=== PATIENT | female | born 1990 | race Caucasian/White ===

== ENCOUNTER 2022-03-25 08:14 | Outpatient (CLI) | payer OTHER, SELFPAY ==
--- NOTE | 2022-03-25 08:15 | CRLHL7_ITS ---
For Patients: As a result of the Cures Act, medical imaging exams and procedure reports are released immediately into your electronic medical record. You may view this report before your referring provider. If you have questions, please contact your health care provider. INDICATION: First trimester scan, establish dates. COMPARISON: None. TECHNIQUE: Real-time hampton-scale imaging of the pelvis was performed. FINDINGS: Sonographic imaging demonstrates a single living intrauterine gestation. The embryo demonstrates a regular cardiac rate measuring 176 beats per minute. The embryo`s crown-rump length measurement of 2.1 cm corresponds to a gestational age of 8 weeks 5 days with a sonographic due date of 10/30/2022. There is a normal-appearing yolk sac. There are no gross abnormalities noted within the embryo at this early state of development. The gestational sac has a normal appearance. There is a 1.6 x 0.5 x 0.5 cm perigestational hemorrhage. The amount of fluid within the sac appears appropriate for gestational age. The cervix is closed. The myometrium appears normal. The ovaries are of normal size. Corpus luteal cyst left ovary. There are no suspicious fluid collections noted in the cul-de-sac. Debris in the bladder. IMPRESSION: Single living intrauterine with sonographic gestational age 8 weeks 5 days and sonographic due date 10/30/2022. Small left-sided subchorionic hemorrhage measuring 1.6 x 0.5 x 0.5 cm. Layering debris in the bladder suggesting cystitis. Dictated by Aureliano Mccoy MD @ 03/25/2022 9:02:14 AM (Electronically Signed)
[2022-03-25 12:13] LABS: HIV 1/2/P24 Combo Screen* Negative (Negative)
[2022-03-25 12:17] LABS: Chlamydia DNA Amplified* NOT DETECTED (No Detected); GC DNA Amplified* NOT DETECTED (No Detected)
[2022-03-25 13:19] LABS: Hepatitis B Surface Antigen* Negative (Negative)
[2022-03-25 13:36] LABS: Hepatitis C Virus Antibody* Negative (Negative)
[2022-03-26 17:51] LABS: Varicella-Zoster Virus Ab, IgG 619.9 IV
[2022-03-26 17:56] LABS: Rubella Antibody IgG 33.8 IU/mL
[2022-03-26 21:11] LABS: Rapid Plasma Reagin (RPR) Non Reactive (Non Reactive)
== END 2022-03-25 08:15 | disposition home or self-care (01) ==
LOC: US 08:16
PROVIDERS: PCP Advanced Practice Midwife; Visit Provider Advanced Practice Midwife
DX: Z34.91 Encounter for supervision of normal pregnancy, unspecified, first trimester (principal); O20.9 Hemorrhage in early pregnancy, unspecified; Z3A.08 8 weeks gestation of pregnancy
CPT/HCPCS: 36415; 76801; 86592; 86703; 86762; 86787; 86803; 86850; 86900; 86901; 87086; 87340; 87491

== ENCOUNTER 2022-06-11 10:10 | Outpatient (CLI) | payer OTHER, SELFPAY ==
--- NOTE | 2022-06-11 10:15 | CRLHL7_ITS ---
For Patients: As a result of the Century Cures Act, medical imaging exams and procedure reports are released immediately into your electronic medical record. You may view this report before your referring provider. If you have questions, please contact your health care provider. INDICATION: Evaluate anatomy. COMPARISON: 03/25/2022 TECHNIQUE: Real time hampton scale imaging of the fetus was performed as well as color Doppler analysis of the umbilical vessels. FINDINGS: Sonographic imaging demonstrates a single living intrauterine gestation. Fetus demonstrates a regular cardiac rate of 152 beats per minute. Fetus has a vertex position. The placenta lies anteriorly without evidence of placenta previa. The edge of the placenta is located 4.7 cm from the internal cervical os. Amniotic fluid volume appears normal. Single deepest vertical pocket: 5.1 cm. The cervix is closed and measures 3.7 cm in length. The composite ultrasound gestational age is calculated at 19 weeks 4 days with an estimated sonographic due date of 11/01/2022. The estimated weight is 314 grams which lies at the 42nd %. The following biometric measurements were obtained: Biparietal diameter: 4.3 cm/19 weeks 0 days 18th% Head circumference: 16.4 cm/19 weeks 1 day 13th% Abdominal circumference: 14.9 cm/20 weeks 1 day 55th% Femur length: 3.1 cm/19 weeks 4 days 34th% The HC/AC ratio measures: 1.10 range (1.08-1.26) On anatomic survey, there is a normal appearance of the cerebral ventricles, cavum septi pellucidi, cisterna magna and cerebellum. The incomplete visualization of the profile and nose/lips due to position. The cervical, thoracic and lumbar spine are well visualized and appear normal. There is a normal four-chamber heart view and the left and right ventricular outflow tracts appear normal. The diaphragm and stomach appear normal. The kidneys and bladder also appear normal. There is a normal three-vessel cord and cord insertion site. The four extremities appear normal. IMPRESSION: Concordance of clinical and sonographic dating. Incomplete visualization of the profile, nose and lips due to position. Remainder of the anatomic survey is normal. Short-term follow-up recommended. Estimated weight 42nd percentile. Abdominal circumference 55th percentile. Dictated by Aureliano Mccoy MD @ 06/11/2022 11:27:30 AM (Electronically Signed)
== END 2022-06-11 10:11 | disposition home or self-care (01) ==
LOC: US 10:11
PROVIDERS: PCP Advanced Practice Midwife; Visit Provider Advanced Practice Midwife
DX: Z34.92 Encounter for supervision of normal pregnancy, unspecified, second trimester (principal); Z3A.19 19 weeks gestation of pregnancy
CPT/HCPCS: 76805

== ENCOUNTER 2022-07-09 08:12 | Outpatient (CLI) | payer OTHER, SELFPAY ==
--- NOTE | 2022-07-09 08:15 | CRLHL7_ITS ---
For Patients: As a result of the Century Cures Act, medical imaging exams and procedure reports are released immediately into your electronic medical record. You may view this report before your referring provider. If you have questions, please contact your health care provider. INDICATION: F/U ON MISSED ANATOMY FROM ANATOMY SCAN DUE TO POSITION OF FETUS COMPARISON: 06/11/2022 TECHNIQUE: Real time hampton scale imaging of the fetus was performed. FINDINGS: Sonographic imaging demonstrates a single living intrauterine gestation. Fetus demonstrates a regular cardiac rate of 4.9 beats per minute. Fetus has a vertex position. The placenta lies anterior. Amniotic fluid volume appears normal. Single deepest vertical pocket: 4.9 cm. The cord inserts into the placenta 3.8 cm from the placental edge. Normal nose, lips and profile given limitations of posterior face located posteriorly. IMPRESSION: Normal profile, nose and lips. Dictated by Aureliano Mccoy MD @ 07/09/2022 9:34:35 AM (Electronically Signed)
== END 2022-07-09 08:13 | disposition home or self-care (01) ==
LOC: US 08:12
PROVIDERS: PCP Advanced Practice Midwife; Visit Provider Advanced Practice Midwife
DX: O35.8XX0 Maternal care for other (suspected) fetal abnormality and damage, not applicable or unspecified (principal)
CPT/HCPCS: 76816

== ENCOUNTER 2022-08-04 16:30 | Outpatient (RCR) | payer OTHER, SELFPAY | END 2022-10-27 10:01 | disposition home or self-care (01) | PROVIDERS: PCP Advanced Practice Midwife; Visit Provider Advanced Practice Midwife | DX: N81.89 Other female genital prolapse (principal); Z51.89 Encounter for other specified aftercare | CPT/HCPCS: 97110; 97140; 97161; 97535 ==

== ENCOUNTER 2022-08-06 08:14 | Outpatient (CLI) | payer OTHER, SELFPAY ==
--- NOTE | 2022-08-06 08:15 | CRLHL7_ITS ---
For Patients: As a result of the Century Cures Act, medical imaging exams and procedure reports are released immediately into your electronic medical record. You may view this report before your referring provider. If you have questions, please contact your health care provider. INDICATION: MARGINAL CORD INSERT COMPARISON: 07/09/2022 TECHNIQUE: Real time hampton scale imaging of the fetus was performed. FINDINGS: Sonographic imaging demonstrates a single living intrauterine gestation. Fetus demonstrates a regular cardiac rate of 150 beats per minute. Fetus has a breech position. The placenta lies anteriorly. The placental cord insertion is located 2.1 cm from the edge of the placenta in the transverse plane. Amniotic fluid volume appears normal and there is a single deepest vertical pocket: 5.5 cm. The estimated weight is 1157gm which lies at the 42nd %. On the prior OB ultrasound exam dated 06/11/2022 the estimated weight was at the 42nd%. BPD 36th percentile. HC 39th percentile. AC 45th percentile. FL 38th percentile. The HC/AC ratio measures 1.11 range (1.02-1.21). IMPRESSION: Sonographic gestational age 28 weeks 1 day and sonographic due date 10/28/2022. Good correlation with dates and normal interval growth. Estimated weight 42nd percentile. Abdominal circumference 45th percentile. Placental cord insertion is 2.1 cm from the placental edge in the transverse plane. Dictated by Aureliano Mccoy MD @ 08/06/2022 10:59:09 AM (Electronically Signed)
== END 2022-08-06 08:15 | disposition home or self-care (01) ==
LOC: US 08:14
PROVIDERS: PCP Advanced Practice Midwife; Visit Provider Advanced Practice Midwife
DX: Z34.82 Encounter for supervision of other normal pregnancy, second trimester (principal); Z3A.27 27 weeks gestation of pregnancy
CPT/HCPCS: 76816

== ENCOUNTER 2022-08-12 09:18 | Outpatient (CLI) | payer OTHER, SELFPAY ==
[2022-08-15 01:39] LABS: Rapid Plasma Reagin (RPR) Non Reactive (Non Reactive)
== END 2022-08-12 09:19 | disposition home or self-care (01) ==
LOC: NFLDREF 13:37
PROVIDERS: PCP Advanced Practice Midwife; Visit Provider Advanced Practice Midwife
DX: Z34.80 Encounter for supervision of other normal pregnancy, unspecified trimester (principal)
CPT/HCPCS: 86592

== ENCOUNTER 2022-08-14 07:57 | Outpatient (CLI) | payer OTHER, SELFPAY ==
[2022-08-14 08:21] VITALS: PULSE 80; O2SAT 100
[2022-08-14 08:25] VITALS: BP 114/56; PULSE 77
[2022-08-14 08:26] VITALS: TEMP 36.7
[2022-08-14 09:04] LABS: Fetal Fibronectin* Negative (Negative)
--- NOTE | 2022-08-14 09:28 | PC.OBNST ---
NST Note NST Note Start: 08/14/22 08:21 Freq: ONCE Status: Active Protocol: Document 08/14/22 09:25 MARISSA (Rec: 08/14/22 09:27 MAIRSSA [id number]) NST Note 2 Para (# of births) 1 EDC 10/30/22 Gestational Age In Weeks & Days 29 Weeks & 0 Days Patient Presented with Complaint(s) of Contractions/cramping Other Complaints dull low back pain, feels in legs. Appropriate for Gestational Age Yes LOWELL Santo Date 08/14/22 Appropriate for Gestational Age Yes LOWELL yAon Date 08/14/22 OB NST charge Yes Complete NST Note via Write Note Yes The provider's electronic signature indicates the NST is reactive/appropriate for gestational age. *Note to provider: If an addendum is required, open the patient's chart and click on the note under the Nurse/Allied Health tab.
== END 2022-08-14 09:44 | disposition home or self-care (01) ==
LOC: OB OUT 07:57 → OB 08:01
PROVIDERS: PCP Advanced Practice Midwife; Visit Provider Advanced Practice Midwife
DX: O47.03 False labor before 37 completed weeks of gestation, third trimester (principal); Z3A.29 29 weeks gestation of pregnancy
CPT/HCPCS: 59025; 84112; 99213

== ENCOUNTER 2022-09-10 12:11 | Outpatient (CLI) | payer OTHER, SELFPAY ==
--- NOTE | 2022-09-10 12:15 | CRLHL7_ITS ---
For Patients: As a result of the Century Cures Act, medical imaging exams and procedure reports are released immediately into your electronic medical record. You may view this report before your referring provider. If you have questions, please contact your health care provider. INDICATION: Marginal cord insertion COMPARISON: 08/06/2022 TECHNIQUE: Real time hampton scale imaging of the fetus was performed. FINDINGS: Sonographic imaging demonstrates a single living intrauterine gestation. Fetus demonstrates a regular cardiac rate of 149 beats per minute. Fetus has a vertex position. The placenta lies anteriorly. Amniotic fluid volume appears normal and there is a single deepest vertical pocket: 5.2 cm. The estimated weight is 2001gm which lies at the 31st %. On the prior OB ultrasound exam dated 08/06/2022 the estimated weight was at the 42nd%. The HC/AC ratio measures 1.06 range (0.96-1.12). BPD 44th percentile. HC 28th percentile. AC 39th percentile. FL 25th percentile. The placental cord insertion is 4.2-4.6 cm from the edge of the placenta. IMPRESSION: Placental cord insertion 4.2-4.6 cm from the placental edge. Sonographic gestational age 32 weeks 5 days and sonographic due date 10/31/2022. Good correlation with dates. Normal interval growth. Estimated weight 31st percentile. Abdominal circumference 39th percentile. Dictated by Aureliano Mccoy MD @ 09/10/2022 1:26:01 PM (Electronically Signed)
== END 2022-09-10 12:12 | disposition home or self-care (01) ==
LOC: US 12:12
PROVIDERS: PCP Advanced Practice Midwife; Visit Provider Physician Assistant
DX: O43.199 Other malformation of placenta, unspecified trimester (principal); Z3A.32 32 weeks gestation of pregnancy
CPT/HCPCS: 76816

== ENCOUNTER 2022-10-01 09:19 | Outpatient (CLI) | payer OTHER, SELFPAY ==
--- NOTE | 2022-10-01 09:15 | CRLHL7_ITS ---
For Patients: As a result of the Century Cures Act, medical imaging exams and procedure reports are released immediately into your electronic medical record. You may view this report before your referring provider. If you have questions, please contact your health care provider. INDICATION: Third trimester scan, evaluate growth. Marginal cord insertion. COMPARISON: 09/10/2022 TECHNIQUE: Real time hampton scale imaging of the fetus was performed. FINDINGS: Sonographic imaging demonstrates a single living intrauterine gestation. Fetus demonstrates a regular cardiac rate of 129 beats per minute. Fetus has a vertex position. The placenta lies anteriorly. Amniotic fluid volume appears normal and there is a single deepest vertical pocket: 7.7 cm. The estimated weight is 2883gm which lies at the 61st %. On the prior OB ultrasound exam dated 09/10/2022 the estimated weight was at the 31st%. BPD 26th percentile. HC 33rd percentile. AC 81st percentile. FL 45th percentile. The HC/AC ratio measures 0.98 range (0.93-1.08). IMPRESSION: The placental cord insertion is located 4.2 cm from the placental edge, considered normal. Sonographic gestational age 36 weeks 0 days and sonographic due date 10/29/2022. Good correlation with dates. Normal interval growth. Estimated weight 61st percentile. Abdominal circumference 81st percentile. Dictated by Aureliano Mccoy MD @ 10/01/2022 10:31:17 AM (Electronically Signed)
== END 2022-10-01 09:20 | disposition home or self-care (01) ==
LOC: US 09:19
PROVIDERS: PCP Advanced Practice Midwife; Visit Provider Obstetrics & Gynecology
DX: O43.193 Other malformation of placenta, third trimester (principal); O34.219 Maternal care for unspecified type scar from previous cesarean delivery
CPT/HCPCS: 76816

== ENCOUNTER 2022-10-08 13:25 | Outpatient (CLI) | payer OTHER, SELFPAY | END 2022-10-08 13:26 | disposition home or self-care (01) | LOC: NFLDREF 10-11 12:58 | PROVIDERS: PCP Advanced Practice Midwife; Visit Provider Obstetrics & Gynecology | DX: Z34.93 Encounter for supervision of normal pregnancy, unspecified, third trimester (principal); Z3A.36 36 weeks gestation of pregnancy | CPT/HCPCS: 87081; 87653 ==

== ENCOUNTER 2022-11-04 01:53 | Inpatient (IN) | payer OTHER, SELFPAY ==
[2022-11-04] VITALS (60 sets, daily range): BP systolic 89–171; BP diastolic 51–120; PULSE 74–209; RESP 16–18; TEMP 36.4–36.8; O2SAT 77–100; BMI 25.4
[2022-11-04] MEDS: LACTATED RINGERS 1000 ML 1,000 ML 825 ML IV (02:18)
[2022-11-04 02:21] LABS: Basophils Absolute Auto 0.02 K/uL (0.00-0.30); Basophils Percent Auto 0.2 % (0.0-3.0); Eosinophils Absolute Auto 0.05 K/uL (0.00-0.50); Eosinophils Percent Auto 0.5 % (0.0-7.0); Hematocrit 35.8 % (33.0-51.0); Hemoglobin* 11.9 gm/dL (12.0-16.0); Immature Granulocytes Abs Auto 0.04 K/uL (0.00-0.30); Immature Granulocytes Pct Auto 0.4 %; Lymphocytes Percent Auto 31.3 % (20-44); Mean Corpuscular HGB Conc 33 gm/dL (32-36); Mean Corpuscular Hemoglobin 29 pg (26-34); Mean Corpuscular Volume 88 fL (80-100); Monocytes Percent Auto 9.1 % (0.0-11.0); Neutrophils Percent Auto 58.5 % (42.0-72.0); Platelet Count* 248 K/uL (140-440); RDW Coefficient of Variation % 13.7 % (11.5-15.5); Red Blood Count 4.05 m/uL (4.00-5.20); White Blood Count* 9.58 K/uL (4.50-11.00)
[2022-11-04 02:23] LABS: Slide Review Reflex No
[2022-11-04] MEDS: PHENYLEPHRINE 100 MCG/ML SYRINGE IVP ×4 (02:25→03:08)
[2022-11-04] MEDS: LIDOCAINE 2% (PF) 5 ML VIAL EPIDURAL (02:45)
[2022-11-04] MEDS: ROPIVACAINE 0.2% 100 ml 100 ML 12 MG EPIDURAL (02:50)
--- NOTE | 2022-11-04 02:52 | P.LDBA_ITS ---
Subjective History of Present Illness Time Seen by Provider: 02:20 Date Seen: 11/04/22 Narrative: Patient is being admitted to Labor and Delivery for spontaneous onset of labor. She is a 32 year old at 40 5/7 weeks gestation. Her full history and physical was dictated by Dr. Dykes on 10/08/2022. Please see this for details. She had been seen in the clinic on 11/03/2022 for a routine OB visit. At that time, she stated that she was having mild nonpainful contraction s at about 30-minute intervals. Her cervix was 2/90/-2 on exam. She and her elected to stay in [place] at a motel overnight. Her contractions increased in frequency to about every 5 minutes by evening, but were still mild. She went to sleep and was awakened at midnight with strong contractions at less than 5- minute intervals. Blood Type: A positive 1. Previous section, low transverse incision, 2-layer closure documented * For NRFHT remote from delivery and OP presentation * TOLAC calculator: 77.1% - Pt considering but unsure if she wants RC/S or TOLAC, at this time would like to try but if undelivered by 40 weeks prefers to scheduled a at that time. * TOLAC consent form given to patient on 09/10/2022. Signed on 10/08/22 2. Hx of Gestational hypertension, reason for IOL last 3. Hx of depression 4. FAS: Vertex, SDP 5.1, anterior placenta with Marginal cord insertion, 42%ile. Profile and nose/lips not visualized, follow up u/s in 2-3 weeks. F/U u/s: 07/09/22: FINDINGS: The cord inserts into the placenta 3.8 cm from the placental edge. IMPRESSION:Normal profile, nose and lips. * Growth u/s q4 weeks starting at 28-32 weeks for marginal cord insertion recommended. - 06/11/22 request sent to [facility] for appointments. * 08/06/22: 42%ile: IMPRESSION: Sonographic gestational age 28 weeks 1 day and sonographic due date 10/28/2022. Good correlation with dates and normal interval growth. Estimated weight 42nd percentile. Abdominal circumference 45th percentile.Placental cord insertion is 2.1 cm from the placental edge in the transverse plane. * 09/10/2022: EFW 4 lb 7 oz (31%), BPD 44%, HC 28%, AC 39%, FL 20 5%, SDP 5.2 cm, vertex, placental cord insertion 4.6 cm from edge. * 10/01/21: EFW 61%, AC 81%, placental cord insertion 4.2 cm from the placental edge, considered normal. 5. Anemia, hgb 10.5 * iron supplement * Recheck at 36 weeks:11.1 normal Tdap 10/01/22 Flu 10/01/22 OB - Problem Based A/P Additional Plan (1) Spontaneous onset of labor: Status: Acute (2) Desires (vaginal after ) trial: Status: Acute (3) History of delivery: Status: Acute Plan Admit to Center. Anesthesia notified of patient desire for epidural. O.R. team in house. Delivery/Labor/Induction Plan Plan: expectant management OB Exam Physical Exam Vital signs: Pulse BP Pulse Ox 80 89/53 L 100 11/04/22 02:51 11/04/22 02:51 11/04/22 02:48 Detailed Labor and Delivery Exam Patient Gravid: Yes Dilation (cm): 6 Effacement (%): 90 Cervix position: mid Consistency: soft Contraction Frequency: 2-3 minutes Contraction duration (sec): 60 Tachysystole: No Contraction intensity: Strong/Firm Fetus (Single) Station: 0 Amniotic Membrane Status: intact (BBOW)
[2022-11-04] MEDS: fentaNYL 100 MCG/2 ML inj EPIDURAL (03:00)
[2022-11-04] MEDS: LACTATED RINGERS 1000 ML 1,000 ML 1200 ML IV (03:15)
--- NOTE | 2022-11-04 03:25 | PM.ANBPRC ---
[facility] Medical History (Updated 09/10/22 @ 17:14 by Anjali Scruggs MD) Gestational hypertension depression Surgical History (Updated 06/11/22 @ 11:44 by Nusrat Mckinney CNM) Status post primary low transverse section [place] teeth extracted Family History (Updated 03/25/22 @ 16:00 by Miranda Block CNM) Brother Crohn disease Father Healthy adult Mother Healthy adult Social History (Updated 03/25/22 @ 16:01 by Miranda Block CNM) Are you following a diet prescribed by a doctor: No Are you following a special diet: No Highest level of school completed/degree received: Bachelor's degree Physical activity type: other Physical activity type details: cross fit How many days of moderate to strenuous exercise, like a brisk walk, did you do in the last 7 days: 3 Smoking Status: Never smoker Non-prescribed substance use: denies use Caffeine: No Little interest or pleasure in doing things: not at all Feeling down, depressed, or hopeless: not at all Meds Home Medications and Allergies Home Medications Medication Instructions Recorded Confirmed Type sertraline 50 mg tablet 50 mg PO DAILY 03/25/22 11/03/22 History prenat.vits,rashawn,[id number] 1 tab PO QDAY 05/03/22 11/03/22 History ferrous sulfate 325 mg (65 mg 325 mg PO QDAY 10/01/22 11/03/22 History iron) tablet Allergies Allergy/AdvReac Type Severity Reaction Status Date / Time No Known Allergies Allergy Unverified 11/03/22 12:42 Results Labs Labs: Laboratory Results - last 24 hr 11/04/22 02:10 WBC 9.58 RBC 4.05 Hgb 11.9 L Hct 35.8 MCV 88 MCH 29 MCHC 33 RDW Coeff of Delaney 13.7 Plt Count 248 Neut % (Auto) 58.5 Lymph % (Auto) 31.3 [place] % (Auto) 9.1 Eos % (Auto) 0.5 Baso % (Auto) 0.2 Neut # (Auto) 5.60 Lymph # (Auto) 3.00 H [place] # (Auto) 0.90 Eos # (Auto) 0.05 Baso # (Auto) 0.02 Vital Signs Vital Signs: Last Vital Signs Pulse 100 11/04/22 03:20 BP 132/66 11/04/22 03:20 Pulse Ox 96 11/04/22 03:22 Anesthesia Procedures Epidural Insertion Patient Location: OB Start Time: :20 Stop Time: 03:20 Start Date: 11/04/22 Stop Date: 11/04/22 Reason for Block: procedure for pain Patient Position: sitting Performed By: Leslie Workman Preanesthetic Checklist: IV checked, risks and benefits discussed, monitors and equipment checked, pre-op evaluation, timeout performed and anesthesia consent Prep: chlorhexidine gluconate Monitoring: blood pressure monitoring, continuous pulse oximetry and heart rate Approach: midline Vertebral Space: lumbar (1-5) Epidural Technique: PRESTON saline Needle Type: Tuohy needle Injection Technique: continuous catheter (continuous catheter) Needle gauge: 17 Needle Length (cm): 10 cm Needle Insertion Depth (cm): 7 Catheter Gauge: 19 Catheter Type: multi-orifice Catheter at skin depth (cm): 15 Test Dose Result: negative and lidocaine 1.5% with epinephrine 1 to 200,000
[2022-11-04] MEDS: ePHEDrine sulfate 5 MG/ML inj 10 MG IVP ×3 (03:28→03:42)
[2022-11-04] MEDS: OXYTOCIN 30 unit/500 ML in NS 30 UNIT/500 ML BAG 300 UNIT IVPB (04:37)
[2022-11-04] MEDS: LIDOCAINE 1 % PF 30 ML INJECTION (05:00)
--- NOTE | 2022-11-04 05:29 | PM.OBPRCVD ---
Procedure Delivery date: 11/04/22 Procedure Done: Global Events: Previous Delivery monitor: external FHT and external uterine Route of delivery: Laceration description: Perineal - 2nd Degree (complex with bilateral labial tears) Delivery repair: Vicryl (3-0) and Chromic (3-0) Estimated blood loss (mL): 550 Anesthesia type: Epidural Disposition: floor Complications: None. Narrative: The patient is a 32 year-old G2 now P2002 admitted on 11/04/2022 at 40 Weeks, 5 Days gestation for spontaneous onset of labor.? Cervical exam on admission was 6 cm/90 % effaced/0 station with membranes intact in vertex presentation.? Contractions were every 2-3 minutes.? heart rate demonstrated baseline 120 bpm with moderate variability, + accelerations, - decelerations; a category 1 tracing.? Labor onset:? 0000 on 11/04/2022 SROM occurred at 0256 with light meconium-stained fluid. ? Labor Analgesia:? Epidural ? Pitocin:? No ? Complete:? 0300 ? Pushing:? 0300 ? heart tones during second stage were 120 to 140s baseline with variable and late decelerations to 70s to 90s, mostly associated with episodic maternal hypotension following epidural, relieved with pressor administration and maternal repositioning. ? At 0434 a viable male delivered in vertex OA presentation over complex second-degree perineal and vulvar laceration via spontaneous vaginal delivery after section ().? Infant was placed on maternal abdomen.? Cord was clamped and cut after a 30-60 second delay.? Nose and mouth were bulb suctioned.? Infant weight pending.? 8 at 1 minute and 9 at 5 minutes.? Shoulder dystocia: No.? Nuchal cord: No. ? Placenta delivered spontaneously and complete at 0440 with a 3 vessel cord. ? Mother and infant were stable after delivery. ? Lacerations:? Complex second-degree perineal and vulvar laceration, stellate with skin extension to level of anus, repaired with 3-0 vicryl and 3-0 chromic. ? Blood loss: 550 mL. Blood loss measurement type: QBL ? Sponge and needles counts are correct. Infant Infant Gender: Male presentation: vertex Placental Delivery Description: Spontaneous Cord Description: 3 Vessels
[2022-11-04] MEDS: IBUPROFEN 600 MG TABLET PO ×2 (06:52→13:40)
[2022-11-04 07:54] LABS: SARS PCR* Negative SARS-CoV-2 (Negative)
[2022-11-04] MEDS: DOCUSATE SODIUM 100 MG CAPSULE PO (08:14)
[2022-11-04] MEDS: LACTATED RINGERS 1000 ML 1,000 ML 400 ML IV (08:53)
[2022-11-04] MEDS: ACETAMINOPHEN 500 MG TABLET 1000 MG PO ×2 (10:56→19:16)
[2022-11-05 01:15] VITALS: BP 108/63; PULSE 72; RESP 16; TEMP 36.6; O2SAT 97
[2022-11-05] MEDS: IBUPROFEN 600 MG TABLET PO ×2 (01:22→07:35)
[2022-11-05] MEDS: ACETAMINOPHEN 500 MG TABLET 1000 MG PO ×2 (03:51→09:19)
[2022-11-05 05:00] VITALS: BP 101/59; PULSE 80; RESP 16; TEMP 36.5; O2SAT 98
[2022-11-05 06:55] LABS: Hemoglobin* 8.4 gm/dL (12.0-16.0)
--- NOTE | 2022-11-05 08:30 | PM.OBDSVD1 ---
DS: Providers Provider Date Seen: 11/05/22 Date of admission: 11/04/22 01:53 Primary care physician: Nusrat Mckinney CNM Admitting Clinician: Anjali Scruggs MD Attending Physician on discharge: Codi Odell CNM w/ CHELSEA Ruth DS: Diagnosis Discharge Diagnosis (1) care and examination immediately after delivery: Status: Acute (2) (vaginal after ): Status: Acute (3) Lactating mother: Status: Acute (4) Anemia due to acute blood loss: Status: Acute Exam Narrative: Exam Narrative: GENERAL APPEARANCE:? normal affect, alert, no distress? MOOD:? appropriate? CHEST:? clear to auscultation? HEART:? regular rate and rhythm? ABDOMEN:? soft, non-tender the uterine fundus is 1 below Umbilicus, Midline and is appropriate for the stage of recovery.? PERINEUM:? mild edema of the perineum, there is a Perineal Laceration,? 2nd degree, that is healing well.? EXTREMITIES:? normal and no edema? Const: Vital Signs, click to edit/add: Vital Signs - 24 hr 11/04/22 12:08 11/04/22 16:25 11/04/22 19:26 Temperature 98.3 F 98.3 F 97.8 F Pulse Rate [Blood Pressure Cuff] 77 96 98 Respiratory Rate 16 16 16 Blood Pressure [Le ft Arm] 129/79 121/84 Blood Pressure [Ri ght Arm] 112/66 Pulse Oximetry 97 96 97 Oxygen Delivery Me thod Room Air Room Air Room Air 11/05/22 01:15 11/05/22 05:00 Temperature 98 F 97.7 F Pulse Rate [Blood Pressure Cuff] 72 80 Respiratory Rate 16 16 Blood Pressure [Le ft Arm] 108/63 101/59 L Blood Pressure [Ri ght Arm] Pulse Oximetry 97 98 Oxygen Delivery Me thod Room Air Room Air Documenting provider has reviewed patient's vital signs: yes OB - DS: Summary Hospital Course Hospital Course: The patient is a 32 year old G 2 P 2 at 40 5/7 weeks gestation that was admitted to the Center on 11/04/22 for spontaneous onset of labor. She had an uncomplicated vaginal after delivery. She delivered a viable male . the patient has done well. The pain is well controlled with current medications.? She has no new complaints.? Urinary output is adequate and she is voiding without difficulty.? Has a good appetite, is tolerating a general diet, is passing flatus, and has not yet had a bowel movement.? Has small amount of rubra lochia.? She is ambulating well. She is and reports it is going well. Hgb today is 8.4, patient denies symptoms. Peripartum Data delivery method: Laceration description: Perineal - 2nd Degree complications: none [place] Infant Gender: Male Infant Discharge Plan: Home Status at Discharge Functional status at discharge: independent ambulation Overall status at discharge: patient is progressing back to baseline Time Spent with Patient Time attestation: Total time spent providing and/or coordinating discharge services: Time spent: Less than 30 minutes Discharge Plan Discharge Disposition: Home, Self-Care Date of Admission: 11/04/22 01:53 Attending Provider on Discharge: Codi Odell Primary Care Provider: Nusrat Mckinney Condition: Stable Anticipated Discharge Date/Time: 11/05/22 12:00 Discharge Medications: New acetaminophen 500 mg Tablet 1,000 mg PO Q6H PRNQty: 0 0RF docusate sodium 100 mg Capsule 100 mg PO DAILY Qty: 90 0RF ibuprofen 600 mg Tablet 600 mg PO Q6H PRNQty: 60 0RF Continued sertraline 50 mg tablet 50 mg PO DAILY prenat.vits,rashawn,[id number] Tablet 1 tab PO QDAY ferrous sulfate 325 mg (65 mg iron) tablet 325 mg PO QDAY Discharge Orders: Discharge Order (Routine); Ordered 11/05/22 Ordered By: Codi Odell Consulting provider completed their portion of the discharge: No Patient Education: OB Over the Counter Medication Information, OB Vaginal/Breast Feeding Additional Instructions: Discharge instructions were reviewed with the patient including signs and symptoms of infection and home going medications Nothing vaginally for 6 weeks: no tampons or intercourse Off Work or School for 6 weeks 2-week visit: discuss infant feeding concerns, review control options and screen for anxiety/depression. 6-week visit for an annual exam. consultation services are available to all mothers and babies for the first year after delivery.? To make an appointment, please call [phone]. Activity Level: Activity as Tolerated Discharge Diet: Regular Follow Up Appointments: [facility] [Provider Group] (2 and 6 week visit) Forms: [employer] Info Instructions
[2022-11-05 09:00] VITALS: BP 127/83; PULSE 93; RESP 16; TEMP 36.5; O2SAT 98
[2022-11-05] MEDS: DOCUSATE SODIUM 100 MG CAPSULE PO (09:13)
== END 2022-11-05 13:00 | disposition home or self-care (01) | DRG 806 ==
LOC: OB OUT 01:54 → OB 01:55
PROVIDERS: Admitting Provider Obstetrics & Gynecology; PCP Advanced Practice Midwife; Visit Provider Obstetrics & Gynecology
DX: O34.211 Maternal care for low transverse scar from previous cesarean delivery (principal); D62 Acute posthemorrhagic anemia; Z37.0 Single live birth; O76 Abnormality in fetal heart rate and rhythm complicating labor and delivery; O70.1 Second degree perineal laceration during delivery; O99.02 Anemia complicating childbirth; O77.0 Labor and delivery complicated by meconium in amniotic fluid; Z3A.40 40 weeks gestation of pregnancy
CPT/HCPCS: 01967; 36415; 85018; 85025; 86850; 86900; 86901; 87635; 99213; A9270; J2001; J2370; J2795; J3010; J7120

== ENCOUNTER 2023-08-15 13:47 | Outpatient (CLI) | payer OTHER, SELFPAY ==
[2023-08-17 15:16] LABS: HSV 1 Subtype by PCR Not Detected; HSV 2 Subtype by PCR Not Detected; Herpes Simplex Subtype Source Not Provided
== END 2023-08-15 13:48 | disposition home or self-care (01) ==
LOC: NFLDREF 13:47
PROVIDERS: Visit Provider Obstetrics & Gynecology
DX: N90.89 Other specified noninflammatory disorders of vulva and perineum (principal)
CPT/HCPCS: 87529

== ENCOUNTER 2024-07-04 13:56 | Outpatient (CLI) | payer OTHER, SELFPAY | END 2024-07-04 13:57 | disposition home or self-care (01) | PROVIDERS: Visit Provider Registered Nurse | DX: Z34.91 Encounter for supervision of normal pregnancy, unspecified, first trimester (principal); Z87.59 Personal history of other complications of pregnancy, childbirth and the puerperium; Z3A.08 8 weeks gestation of pregnancy | CPT/HCPCS: 76817; 82565; 82570; 84156; 84450; 84460; 84520; 86592; 86703; 86704; 86706; 86762; 86787; 86803; 86850; 86900; 86901; 87086; 87340; 87491; 87591 ==

== ENCOUNTER 2024-09-26 09:54 | Outpatient (CLI) | payer OTHER, SELFPAY ==
--- NOTE | 2024-09-26 10:15 | CRLHL7_ITS ---
For Patients: As a result of the Century Cures Act, medical imaging exams and procedure reports are released immediately into your electronic medical record. You may view this report before your referring provider. If you have questions, please contact your health care provider. INDICATION: Evaluate anatomy. COMPARISON: 07/04/2024 TECHNIQUE: Real time hampton scale imaging of the fetus was performed as well as color Doppler analysis of the umbilical vessels. FINDINGS: Sonographic imaging demonstrates a single living intrauterine gestation. Fetus demonstrates a regular cardiac rate of 139 beats per minute. Fetus has a vertex position. The placenta lies anteriorly without evidence of placenta previa. Edge of the placenta located 7.8 cm from the internal cervical os. Amniotic fluid volume appears normal. Single deepest vertical pocket: 3.6 cm. The cervix is closed and measures 5.1 cm in length. The composite ultrasound gestational age is calculated at 19 weeks 4 days with an estimated sonographic due date of 02/16/2025. The estimated weight is 322 grams which lies at the 12th %. The following biometric measurements were obtained: Biparietal diameter: 4.4 cm/19 weeks 1 day 4th% Head circumference: 16.7 cm/19 weeks 3 days 3rd% Abdominal circumference: 14.4 cm/19 weeks 5 days 16th% Femur length: 3.3 cm/20 weeks 2 day 28th% The HC/AC ratio measures: 1.16 range (1.08-1.26) On anatomic survey, there is a normal appearance of the cerebral ventricles, cavum septi pellucidi, cisterna magna and cerebellum. The nose, lips, and facial profile appear normal. The cervical, thoracic and lumbar spine are none well visualized. There is a normal four-chamber heart view and the left and right ventricular outflow tracts appear normal. The diaphragm and stomach appear normal. The kidneys and bladder also appear normal. There is a normal three-vessel cord and cord insertion site. The four extremities appear normal. IMPRESSION: Sonographic gestational age 19 weeks 4 days and sonographic due date of 02/16/2025. Sonographic age 8 days behind the clinical age. Estimated weight 12th percentile. Abdominal circumference 16th percentile. Incomplete visualization of the spine. Remainder of the anatomic survey normal. Short-term follow-up recommended. Dictated by Aureliano Mccoy MD @ 09/26/2024 1:15:33 PM (Electronically Signed)
== END 2024-09-26 09:55 | disposition home or self-care (01) ==
LOC: US 09:57
PROVIDERS: Visit Provider Advanced Practice Midwife
DX: Z34.92 Encounter for supervision of normal pregnancy, unspecified, second trimester (principal); Z3A.19 19 weeks gestation of pregnancy
CPT/HCPCS: 76805

== ENCOUNTER 2024-10-03 07:08 | Outpatient (CLI) | payer OTHER, SELFPAY ==
--- NOTE | 2024-10-03 07:15 | CRLHL7_ITS ---
For Patients: As a result of the Century Cures Act, medical imaging exams and procedure reports are released immediately into your electronic medical record. You may view this report before your referring provider. If you have questions, please contact your health care provider. OB ULTRASOUND LMP: 05/04/2024. KWABENA by LMP: 02/09/2024. GA: 21 w, 5 d. Single. Comparison: 09/26/2024. INDICATION: Follow-up spine views. TECHNIQUE: Real time hampton scale imaging of the fetus was performed. Transabdominal. CERVIX: Not visualized. POSITIONING: Vertex. AMNIOTIC FLUID: 5.6 cm. SDP (N: greater than 2 x 1 cm) PLACENTA: Technique: Transabdominal. PLACENTA POSITION: Anterior. DOPPLER: heart rate: 145 bpm. COMMENT: The four-chamber heart, left ventricular outflow tract, and right ventricular outflow tract is visualized and is within normal limits. The spine is visualized and within normal limits. IMPRESSION: Spine is visualized and is within normal limits. Louisa Beckett M.D. Diagnostic/Breast Radiologist [email or web address] ISAC/valentina montgomery/Dictated by: Louisa Beckett MD @ 10/03/2024 9:05:00 AM (Electronically Signed)
== END 2024-10-03 07:09 | disposition home or self-care (01) ==
LOC: US 07:12
PROVIDERS: Visit Provider Advanced Practice Midwife
DX: O35.FXX0 Maternal care for other (suspected) fetal abnormality and damage, fetal musculoskeletal anomalies of trunk, not applicable or unspecified (principal); Z3A.21 21 weeks gestation of pregnancy
CPT/HCPCS: 76816

== ENCOUNTER 2024-11-21 13:05 | Outpatient (CLI) | payer OTHER, SELFPAY | END 2024-11-21 13:06 | disposition home or self-care (01) | LOC: NFLDREF 11-24 08:33 | PROVIDERS: Visit Provider Midwife | DX: Z34.93 Encounter for supervision of normal pregnancy, unspecified, third trimester (principal); Z3A.28 28 weeks gestation of pregnancy | CPT/HCPCS: 86592 ==

== ENCOUNTER 2024-12-24 08:40 | Outpatient (CLI) | payer OTHER, SELFPAY | END 2024-12-24 08:41 | disposition home or self-care (01) | LOC: NFLDREF 12-26 06:41 | PROVIDERS: Visit Provider Advanced Practice Midwife | DX: O99.013 Anemia complicating pregnancy, third trimester (principal); D64.9 Anemia, unspecified; Z3A.33 33 weeks gestation of pregnancy | CPT/HCPCS: 82728 ==

== ENCOUNTER 2025-01-14 12:07 | Outpatient (CLI) | payer OTHER, SELFPAY ==
--- NOTE | 2025-01-14 12:15 | CRLHL7_ITS ---
For Patients: As a result of the Century Cures Act, medical imaging exams and procedure reports are released immediately into your electronic medical record. You may view this report before your referring provider. If you have questions, please contact your health care provider. OB ULTRASOUND [facility], 01/14/2025 CLINICAL HISTORY: Maternal care for low transverse scar. COMPARISON: 09/26/2024, 10/03/2024. TECHNIQUE: Real time hampton scale imaging of the fetus was performed transabdominally. FINDINGS: LMP: 05/04/2024. KWABENA by LMP: 02/08/2025. GA: 36 weeks 3 days. GESTATION: Single. CERVIX: Not visualized. POSITIONING: Vertex. AMNIOTIC FLUID: 7.0 cm SDP. PLACENTA: Technique: TA. Placenta Position: Anterior. DOPPLERS: Heart Rate: 154 bpm. BIOMETRY: BPD: 8.6 cm, 34 weeks 3 days. 12% HC: 30.6 cm, 34 weeks 1 day. <3% AC: 32.4 cm, 36 weeks 2 days. 59% FL: 7.0 cm, 35 weeks 5 days. 29% FL/AC Ratio: 21.51% HC/AC Ratio: 0.94. EFW: 2751 grams, 6 lb 1 oz. Age by this US: 35 weeks 1 day. KWABENA by this US: 02/17/2025. Percentile by KWABENA: 34% IMPRESSION: 1. Sonographic gestational age 35 weeks 1 day and sonographic due date 02/17/2025. Sonographic age 9 days behind the clinical age. 2. Estimated weight 34th percentile. Abdominal circumference 59th percentile. Head circumference less than 3rd percentile. Aureliano Mccoy M.D. Diagnostic Radiologist [email or web address] Transcribed: 1:40 pm DW/Dictated by: Aureliano Mccoy MD @ 01/14/2025 1:11:00 PM (Electronically Signed)
== END 2025-01-14 12:08 | disposition home or self-care (01) ==
LOC: US 12:07
PROVIDERS: Visit Provider Advanced Practice Midwife
DX: O34.211 Maternal care for low transverse scar from previous cesarean delivery (principal); O36.63X0 Maternal care for excessive fetal growth, third trimester, not applicable or unspecified; Z3A.35 35 weeks gestation of pregnancy
CPT/HCPCS: 76816; 87081; 87653

== ENCOUNTER 2025-02-15 07:42 | Inpatient (IN) | payer OTHER, SELFPAY ==
[2025-02-15] VITALS (14 sets, daily range): BP systolic 105–136; BP diastolic 51–87; PULSE 74–134; RESP 12–18; TEMP 36.6–36.9; O2SAT 98–100; BMI 29.5
--- NOTE | 2025-02-15 08:35 | W.PM.LDBA ---
Subjective History of Present Illness Date Seen: 02/15/25 Narrative: Patient is being admitted to Labor and Delivery for induction of labor at 41w0d. She is a 34 year old at 41 0/7 weeks gestation. Her full history and physical was dictated by me 01/23/2025. Please see this for details. She is supported by her , Eula. Specific Issues/Plans G 3 P 2001 : eula. Cristal-2y, Laurie-4 H&P: Completed 01/23/25 by Sh[place] #History depression. Currently stable without medication. #Previous and successful . Desires vaginal . with 1st for NRFHT remote from delivery and OP presentation. Low transverse incision, 2-layer closure documented Consult with OBGYN: completed 01/[address] Cai Growth US at 36 weeks: ordered #Anemia in , 10.2 at 28 weeks oral supplement QOD started 11/21/24 Slight increase at 34 weeks to 10.3 Imaginst tri US-07/04/2024. Single living intrauterine with sonographic gestational age 8 weeks 0 days and a sonographic due date 02/13/2025. Anatomy US 09/26/2024- IMPRESSION: Sonographic gestational age 19 weeks 4 days and sonographic due date of 02/16/2025. Sonographic age 8 days behind the clinical age. Estimated weight 12th percentile. Abdominal circumference 16th percentile. Incomplete visualization of the spine. Remainder of the anatomic survey normal. Short-term follow-up recommended. Follow-up US 10/03/24- IMPRESSION: Spine is visualized and is within normal limits. 01/14/25-1. Sonographic gestational age 35 weeks 1 day and sonographic due date 02/17/2025. Sonographic age 9 days behind the clinical age. 2. Estimated weight 34th percentile. Abdominal circumference 59th percentile. Head circumference less than 3rd percentile. Vaccinations: Flu: Recommended. Declined. Covid: Recommended. Declined. Tdap: Declines RSV: vaccine season ended GBS negative 32 week mental health: 12/24/24 Last pap: 01-22-22 NIL, neg HPV OB - Problem Based A/P Additional Plan (1) Supervision of high risk , unspecified, third trimester: Status: Acute (2) History of successful vaginal after , currently : Status: Acute (3) Anemia affecting : Status: Acute Plan ASSESSMENT:?? 34 at 41 0/7 weeks gestation?? complicated by:??Hx and anemia Labor type: Induction of labor, suspected already early labor Category 1 FHR pattern.??? Labor complicated by: none?? GBS negative ?? PLAN:?? 1. Routine intrapartum cares as ordered. AROM vs pitocin offered. Pt opted for AROM to start. 2. Monitoring per policy, continuous 3. Planning unmedicated . Candidate for analgesia of choice.??? 4. Patient encouraged to reposition and ambulate to promote physiologic labor and .?? 5. Planning AMTSL? 6. Anticipate ? OB Result Labs Blood Type: A (+) positive Rubella: immune RPR/VDLR: nonreactive GBS Status: negative HBsAG: negative OB Exam Physical Exam Vital signs: Temp Pulse Resp BP Pulse Ox 98 F 106 H 18 132/80 100 02/15/25 07:56 02/15/25 07:56 02/15/25 07:56 02/15/25 07:56 02/15/25 07:49 Narrative: Vitals Reviewed Constitutional:? Alert and oriented x3 HEENT:? Normocephalic, atraumatic Neck:? Supple Lungs:? Clear to auscultation bilaterally Heart:? Regular rate and rhythm, no murmur, rub or gallop Abdomen:? Soft, nontender, and gravid. Vertex by Rafa's, confirmed with cervical exam. Extremities:? No edema or erythema Cervix: 3-4 cm/60%/-1 station/vertex, sutures palpable, NAV position. Well applied to cervix and engaged in pelvis. AROM clear fluid with consent. NST: 150 bpm/moderate variability/accelerations present/decelerations absent/irregular contractions, some < 5 min apart
[2025-02-15 08:41] LABS: Basophils Absolute Auto 0.02 K/uL (0.00-0.30); Basophils Percent Auto 0.2 % (0.0-3.0); Eosinophils Absolute Auto 0.06 K/uL (0.00-0.50); Eosinophils Percent Auto 0.7 % (0.0-7.0); Hematocrit 32.9 % (33.0-51.0); Hemoglobin* 10.8 gm/dL (12.0-16.0); Immature Granulocytes Abs Auto 0.03 K/uL (0.00-0.30); Immature Granulocytes Pct Auto 0.3 %; Lymphocytes Percent Auto 19.7 % (20-44); Mean Corpuscular HGB Conc 33 gm/dL (32-36); Mean Corpuscular Hemoglobin 29 pg (26-34); Mean Corpuscular Volume 89 fL (80-100); Monocytes Percent Auto 8.4 % (0.0-11.0); Neutrophils Absolute Auto 6.45 K/uL (1.7-7.0); Neutrophils Percent Auto 70.7 % (42.0-72.0); Platelet Count* 269 K/uL (140-440); RDW Coefficient of Variation % 13.3 % (11.5-15.5); Red Blood Count 3.68 m/uL (4.00-5.20); White Blood Count* 9.13 K/uL (4.50-11.00)
[2025-02-15 08:42] LABS: Slide Review Reflex No
[2025-02-15] MEDS: OXYTOCIN 30 unit/500 ML in NS 30 UNIT/500 ML BAG 300 UNIT IVPB (13:00)
--- NOTE | 2025-02-15 13:19 | W.PM.OBVAGDE ---
OB Procedure Vag Delivery Mother Details Mother Details: The patient is a 34 year-old, 3, Para 2, admitted on 02/15/25 at 41 weeks and 0 Days gestation. Additional Details Amniotic Membrane Status: AROM Amniotic Membrane Rupture Date: 02/15/25 Amniotic Membrane Rupture Time: 08:52 Amniotic Membrane Fluid Description: Clear Analgesia/Anesthesia Type: None Waterbirth: No Pitcoin: Yes (AMTSL) Intrapartal Events: None Induction Method: AROM Labor Onset: 09:00 Complete: 12:34 Pushin:32 Heart: heart tones during second stage were category 2 with good progression. Encouraged PO and position changes encouraged. Moderate variability through out. Team aware baby may need assistance with transition. Delivery Details Delivery Date: 02/15/25 Delivery Time: 12:49 Route of delivery: Gender: Female Infant Viability: Alive; Heart Rate Present Position at Delivery: OA Delivery Details: Patient was admitted for IOL for post term, but was likely already in early labor. She progressed normally after only AROM.. AROM noted at 0852 with clear fluid. Patient was complete at 1234 and pushing at 1232 consistently and strongly. of a viable female at 1249 in OA. Vertex delivered OA. No nuchal cord, but after double loop on left ankle and true know identified. Baby restituted to DALE. With further maternal effort, anterior shoulder did not release under the pubic bone. Flexion of the head and moderate traction and Mc Torres applied. Additional nurse activated alarm for assistance. Attempted to reach posterior arm and unable. Left shoulder noted at patients left hip. With Isauro and moderate traction splinting the baby's head straight with my hands, left should released. the rest of the also required moderate traction with maternal pushing efforts until baby was out to the thighs. dried and passed to mothers abdomen. See nursing notes. Cord double clamped and cut. Baby was taken to the warmer for assistance with transitioning. the total time from of head to full body out was 95 seconds. Cord was clamped and cut at > 5 minutes. APGARS were 7 at one minute and 9 at five minutes respectively. Intact placenta with a 3 vessel cord delivered spontaneously at 1256. Fundus firm. No laceration identified but there is bruising at introitus. RN will watch closely for hematoma development. Ice applied.. EBL 400 cc. Mother and baby stable; mother plans to breastfeed. Infant weight pending.? ? 1 Minute Interval Total Score: 7 5 Minute Interval Total Score: 9 Additional Details Shoulder Dystocia: No Placenta Delivery Time: 12:56 Placental Delivery Description: Spontaneous Procedure Done: Global Blood Loss: 400 Laceration: None Episiotomy Description: None Blood Loss Measurement Type: EBL Bakri Used: No Sponge/Need Count Correct: Yes (NA) Cord Vessel Description: 3 Vessels, True Knot (x1) and Around Extremity (wrapped around left foot 2 x) Event Summary Status: Mother and were stable after delivery.
[2025-02-15] MEDS: IBUPROFEN 600 MG TABLET PO ×2 (13:38→19:43)
[2025-02-15] MEDS: ACETAMINOPHEN 500 MG TABLET 1000 MG PO ×2 (15:33→21:53)
[2025-02-16 00:11] VITALS: BP 111/67; PULSE 87; RESP 20; TEMP 37.1; O2SAT 96
[2025-02-16] MEDS: IBUPROFEN 600 MG TABLET PO ×3 (01:43→14:05)
[2025-02-16 04:38] VITALS: BP 115/74; PULSE 90; RESP 16; TEMP 36.8; O2SAT 96
[2025-02-16] MEDS: ACETAMINOPHEN 500 MG TABLET 1000 MG PO ×2 (04:40→10:48)
[2025-02-16 06:41] LABS: Hemoglobin* 9.2 gm/dL (12.0-16.0)
[2025-02-16 07:56] VITALS: BP 121/75; PULSE 79; RESP 16; TEMP 36.5; O2SAT 97
--- NOTE | 2025-02-16 07:58 | P.DS_ITS ---
DS: Providers Provider Date Seen: 02/16/25 Date of admission: 02/15/25 07:42 Primary care physician: Not a Local Provider Admitting Clinician: Concetta Devries CNM Attending Physician on discharge: Katty Tsang CNM Date of Discharge: 02/16/25 DS: Diagnosis Discharge Diagnosis (1) care and examination of lactating mother: Status: Acute Exam Narrative: Exam Narrative: VSS, afebrile GENERAL APPEARANCE: ?normal affect, alert, no distress MOOD: ?appropriate HEENT: normocephalic, neck supple, full ROM CHEST: ?Symmetrical chest wall movement. ?Normal respiratory effort. ?Clear to auscultation HEART: ?regular rate and rhythm ABDOMEN: ?soft, non-tender. Uterine fundus is firm, at Umbilicus, Midline and is appropriate for the stage of recovery. ?Bowel sounds present. PERINEUM: ?mild edema and bruising of the perineum, intact. EXTREMITIES: ?normal and no edema Const: Vital Signs, click to edit/add: Vital Signs - 24 hr 02/15/25 11:20 02/15/25 12:56 02/15/25 12:57 Temperature 98.5 F 98.1 F Pulse Rate 134 H Pulse Rate [Pulse Oximeter] Respiratory Rate 18 18 Blood Pressure 105/51 L Blood Pressure [Ri ght Arm] [facility] 13:12 02/15/25 13:27 02/15/25 13:43 Temperature Pulse Rate 117 H 117 H 109 H Pulse Rate [Pulse Oximeter] Respiratory Rate Blood Pressure 121/64 122/64 126/68 Blood Pressure [Ri ght Arm] Pulse Oximetry [facility] 02[facility]15/25 13:57 02/15/25 14:12 02/15/25 14:27 Temperature Pulse Rate 104 H 96 114 H Pulse Rate [Pulse Oximeter] Respiratory Rate Blood Pressure 126/74 121/75 118/74 Blood Pressure [Ri ght Arm] Pulse Oximetry [facility] 02/15/25 14:42 02/15/25 17:12 02/15/25 19:46 Temperature 98.5 F 98.3 F Pulse Rate 96 Pulse Rate [Pulse Oximeter] 74 91 Respiratory Rate 16 12 Blood Pressure 118/73 Blood Pressure [Ri ght Arm] 122/77 136/87 Pulse Oximetry 98 99 Oxygen Delivery Me thod Room Air Room Air 02/16/25 00:11 02/16/25 04:38 Temperature 98.8 F 98.3 F Pulse Rate Pulse Rate [Pulse Oximeter] 87 90 Respiratory Rate 20 16 Blood Pressure Blood Pressure [Ri ght Arm] 111/67 115/74 Pulse Oximetry 96 96 Oxygen Delivery Me thod Room Air Room Air Documenting provider has reviewed patient's vital signs: yes OB - DS: Summary Hospital Course Hospital Course: Alissa is a 34 y.o. who was admitted to L & D for labor. ?She had a successful with a shoulder dystocia.?The patient feels well. ?The pain is well controlled with current medications. ?She has no new complaints. ?She is breast feeding and reports things are going well.? the patient has done well.? Vitals have been stable.? She has remained afebrile.? Has a good appetite, is tolerating a general diet. ?She is voiding without difficulty.? She is passing gas and has not had a bowel movement.? She is ambulating and denies any dizziness.? Has Small amount of rubra lochia. ?She is undecided on her plan for prevention. Peripartum Data delivery method: Vaginal Laceration description: None complications: none Gender: Female Discharge Plan: Home Status at Discharge Functional status at discharge: independent ambulation Overall status at discharge: patient is progressing back to baseline Time Spent with Patient Time attestation: Total time spent providing and/or coordinating discharge services: Time spent: Less than 30 minutes Discharge Plan Discharge Disposition: Home, Self-Care Date of Admission: 02/15/25 07:42 Attending Provider on Discharge: Katty Tsang Primary Care Provider: Provider,Not a Local Condition: Stable Anticipated Discharge Date/Time: 02/16/25 12:00 Discharge Medications: New acetaminophen 500 mg Tablet 1,000 mg PO Q6H PRNQty: 0 0RF ferrous sulfate 325 mg (65 mg iron) Tablet 325 mg PO Q48H Qty: 60 0RF docusate sodium 100 mg Capsule 100 mg PO DAILY Qty: 90 1RF ibuprofen 600 mg Tablet 600 mg PO Q6H PRNQty: 60 0RF Continued DHA 200 mg capsule 200 mg PO DAILY ferrous sulfate 325 mg (65 mg iron) tablet 325 mg PO Q OTHER DAY Qty: 60 1RF Discharge Orders: Discharge Order (Routine); Ordered 02/16/25 Ordered By: Katty Tsang Patient Education: OB Over the Counter Medication Information, OB Vaginal/Breast Feeding Additional Instructions: Discharge instructions were reviewed with the patient including signs and symptoms of infection and home going medications Nothing vaginally for 6 weeks: no tampons or intercourse Off Work or School for 6 weeks 2-week visit: discuss feeding concerns, review control options and screen for anxiety/depression. 6-week visit for an annual exam. consultation services are available to all mothers and babies for the first year after delivery.? To make an appointment, please call [phone]. Activity Level: Activity as Tolerated Discharge Diet: Regular Follow Up Appointments: [facility] [Provider Group] Forms: [facility] Info Instructions
[2025-02-16] MEDS: DOCUSATE SODIUM 100 MG CAPSULE PO (08:05)
[2025-02-16] MEDS: FERROUS SULFATE 325 MG TABLET PO (11:23)
[2025-02-16 12:05] VITALS: BP 128/84; PULSE 77; RESP 18; TEMP 36.8; O2SAT 98
[2025-02-16 13:54] LABS: Rapid Plasma Reagin (RPR) Non Reactive (Non Reactive)
== END 2025-02-16 15:20 | disposition home or self-care (01) | DRG 807 ==
PROVIDERS: Admitting Provider Midwife; Visit Provider Midwife
DX: O48.0 Post-term pregnancy (principal); Z37.0 Single live birth; O66.0 Obstructed labor due to shoulder dystocia; O34.211 Maternal care for low transverse scar from previous cesarean delivery; O99.02 Anemia complicating childbirth; D64.9 Anemia, unspecified; Z3A.41 41 weeks gestation of pregnancy
CPT/HCPCS: 36415; 85018; 85025; 86592; 86850; 86900; 86901; A9270

== ENCOUNTER 2025-03-08 13:05 | Outpatient (CLI) | payer OTHER, SELFPAY ==
--- NOTE | 2025-03-08 15:10 | P.LACCB_ITS ---
Consult Note - Mom Date of Visit Date of visit: 03/08/25 Reason for consultation: Assistance Needed and Infant with Special Needs (healing from posterior tongue tie release) Visit Code: Visit Patient's Information Phone number: [phone] : 3 Para: 3 Allergies No Known Allergies Allergy (Verified 03/06/25 10:55) Mother's Medical History: Medical History (Updated 02/21/25 @ 00:01 by Background Daemon) History of depression ?Z87.59 - Personal history of other complications of , childbirth and the puerperium (ICD-10) ?Z86.59 - Personal history of other mental and behavioral disorders (ICD-10) Pelvic floor weakness in female ?N81.89 - Other female genital prolapse (ICD-10) Anemia due to acute blood loss ?D62 - Acute posthemorrhagic anemia (ICD-10) (vaginal after ) (11/04/22) ?O34.219 - Maternal care for unspecified type scar from previous delivery (ICD-10) Gestational hypertension ?O13.9 - Gestational [-induced] hypertension without significant proteinuria, unspecified trimester (ICD-10) depression ?F53.0 - depression (ICD-10) Work Plans: will be home Delivery Information Delivery type: Vaginal Gestational Age: 41 Gestational Weight For Age: AGA Weight: 4.125 kg Baby's Information Baby's Age at Visit: 21 days Baby's Provider or Clinic: [facility] Jaundice: No Past Experience Past Experience: Yes (1st 7-8 mos, 2nd x18 mos) Current Frequency of Day Feedings: every 3 hrs Frequency of Night Feedings: one 4 hr stretch, then every 3 Both Breasts: No Suck: starts and stops Latch: has been weak Length of Time: 10-15 min on one side after bottle feeding due to weight loss Goals: at least 1 year Pumping Pumping: Yes Quantity Pumped: 3-5 oz total both sides Supplementing EBM Supplement: Yes (takes 2-3 oz via bottle) Formula Supplement: No Baby Elimination Number of Wet Diapers a Day: ea feeding Number of BM a Day: 2-3/day; yellow and seedy Breast/Nipple Condition Breast Information: Breasts are symmetrical with rounded lower quadrants, intramammary distance is less than 1.5 inches. No erythema. Nipples are supple, everted prior to feeding. Breast Shape: Round Engorgement: No Maternal Nipple Condition - Left: Common Nipple Maternal Nipple Condition - Right: Common Nipple Sore Nipples: No Baby Assessment Skin: Normal Tongue/frenulum: History of frenotomy (posterior release yesterday, 03/07/25) Palate: Average Lips: Relaxed and Symmetrical Jaw Alignment: Symmetrical Mucosa: [place], moist Onsite Observation Pre-Feed weight: 4.21 kg (up 160gm in 4 days; ) Post-Feed weight: 4.316 kg Milk Transferred (mL): 106 (in 26 min of nursing total) Position: Cross cradle Attachment/latch-on achieved: Easily Suck pattern: Suck burst and normal rest Swallow: Audible, consistent and Gulping Behavior following feed: Alert, content Pre-Nursing Left Nipple: Within Normal Limits Pre-Nursing Right Nipple: Within Normal Limits Post-Nursing Left Nipple: Within Normal Limits Post-Nursing Right Nipple: Creased/Beveled (very slight) Assessments/Interventions Assessments/Interventions: Calos latched well to both breasts with a deep latch; mom reports very comfortable Near end of feeding calos was wiggling around a lot more and then latch became uncomfortable; discussed with mom this is likely her signal that she's done feeding and more comfort sucking and ok to take her off to protect nipple integrity Calos nursed for 13 min ea breast with audible swallows Transferred 56 ml from mom's RIGHT breast Transferred 50 ml from mom's LEFT breast Reassured mom this is an adequate feeding, and actually a bit more than she's taking from a bottle; reassured re: feeding process Education provided: Early feeding cues to maximize timing of latching, Asymmetric latch technique for wide/deep latch to increase milk, Transfer for baby and increase comfort for mom, Alternative feeding methods (SNS, cup, finger feeding, bottling), Pumping for milk management (as desired for bottles, not needed if leee now nursing well after tongue release) and Milk collection, storage Handouts Provided: Suck training exercises: tug of war, windshield wiper, toothbrushing to help with tongue movement Guppy pose to help with gentle stretch of neck muscles Continue with tongue stretch per Peds Dentist who did release Feeding Plan: Breastfeed ad rani, use breast compression as needed near end of feeding to keep baby engaged in feeding Offer both breasts each feeding Expect milk transfer efficiency to increase over next 1-2 weeks as tongue heals Bottles as desired: 1-2x/week if would like to keep as part of feeding routine Follow-Up Suggested follow up: Appointment as needed Time Spent Time spent with patient (min): 75 Meds Home Medications and Allergies Home Medications ?Medication ?Instructions ?Recorded ?Confirmed ?Type docosahexaenoic acid 200 mg 200 mg PO DAILY 07/04/24 0 03/06/25 History capsule ( DHA) ferrous sulfate 325 mg (65 mg 325 mg PO Q OTHER DAY #6 0 tabs 11/21/24 03/06/25 Rx iron) tablet docusate sodium 100 mg capsule 100 mg PO DAILY #90 cap s 02/16/25 03/06/25 Rx ferrous sulfate 325 mg (65 mg 325 mg PO Q48H #60 tabs 02/16/25 03/06/25 Rx iron) tablet Allergies Allergy/AdvReac Type Severity Reaction Status Date / Time No Known Allergies Allergy Verified 03/06/25 10:55
--- OUTSIDE RECORDS SUMMARY | 2025-03-09 00:19 | XMS_ITS | Encounter Summary ---
Author Organization [facility] Address [address] [place] [id number] Care Team Providers Care Adon Name Role Phone Kimberly Echavarria MD Primary Care Provider Amanda Zambrano MD Unavailable [phone] Encounter Details Date Type Department Care Team (Late st Contact Info) Description 11/24/2019 [facility] [address] [id number] Amanda Guzman MD [address] [place] [address] Social History Tobacco Use Types Packs/Day Years Used Date Smoking Tobacco: Never Smokeless Tobacco: Never Alcohol Use Standard Drinks/Week Comments Yes 0 (1 standard drink = 0.6 oz pur e alcohol) rarely AUDIT-C Answer Date Recorded Q1: How often do you have a drink containing alc ohol? 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
--- OUTSIDE RECORDS SUMMARY | 2025-03-09 00:19 | XMS_ITS | Clinical Summary ---
Author Organization [facility] Address [address] [place] [id number] Care Team Providers Care Shoe Salesperson Name Role Phone Unavailable Primary Care Provider Unavailabl e Allergies No known active allergies Medications acetaminophen (TYLENOL) 500 MG tablet Take 500-1,000 mg by mouth every 6 hours as needed for mild pain Active ondansetron (ZOFRAN ODT) 4 MG ODT tab Take 1 tablet (4 mg) by mouth every 8 hours as needed for nausea 10 tablet 9 Active Additional Information Patient not taking.Reported on 11/14/2019 Immunizations Immunization Administration Dates Next Due TD,PF 7+ (Tenivac) 03/06/2004 Family History Medical History Relation Comments Crohn's Disease Brother Relation Status Comments Brother Social History Tobacco Use Types Packs/Day Years [...] Answer Date Recorded PHQ-2 Score 0 11/14/2019 Adolescent Education Answer Date Record ed Getting School Help Needed Not on file 06/03 Comments No Sex and Gender Information Value Date Recorded Sex Assigned at Not on file 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 Gender Identity Not on file Sexual Orientation Not on file Last Filed Vital Signs Vital Sign Reading Time Taken Comments Blood Pressure 136/80 11/14/2019 3:51 PM EEG TECHNOLOGIST Pulse 78 11/14/2019 3:51 PM EEG TECHNOLOGIST Temperature 37.1 C (98.8 F) 11/14/2019 3:51 PM EEG TECHNOLOGIST Respiratory Rate 18 08/02/2019 5:55 PM EEG TECHNOLOGIST Oxygen Saturation 100% 11/14/2019 3:51 PM EEG TECHNOLOGIST Inhaled Oxygen Concentration - - Weight 61.2 kg (134 lb 14.4 oz) 11/14/2019 3:51 PM EEG TECHNOLOGIST Height 167.6 cm (5' 6) 08/02/2019 2:32 PM EEG TECHNOLOGIST Body Mass Index 21.77 08/02/2019 2:32 PM EEG TECHNOLOGIST Plan of Treatment Not on file [place]
--- OUTSIDE RECORDS SUMMARY | 2025-03-09 00:19 | XMS_ITS | Encounter Summary ---
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
--- OUTSIDE RECORDS SUMMARY | 2025-03-09 00:19 | XMS_ITS | Encounter Summary ---
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
== END 2025-03-08 13:06 | disposition home or self-care (01) ==
LOC: OB LAC 13:06
PROVIDERS: Visit Provider Obstetrics & Gynecology
DX: Z39.1 Encounter for care and examination of lactating mother (principal)
CPT/HCPCS: G0463